=== PATIENT | female | born 1975 | race Caucasian/White ===

== ENCOUNTER 2016-05-19 05:51 | Day surgery (SDC) | payer OTHER ==
--- NOTE | 2016-05-03 09:18 | GHP ---
[f rep st] PREOP HISTORY AND PHYSICAL PLANNED PROCEDURE: Scheduled for 05/19/2016, hysteroscopy with morcellation of endometrial tissue and endometrial ablation. PREOPERATIVE DIAGNOSIS: Menorrhagia. INDICATIONS: Patient is a 40-year-old 0, who has complained for the last year and a half of progressively worsening periods. She says her periods are every 25 days. They are very heavy. She has to use super plus tampons, and soaks through them in 45 minutes to an hour. She also has painful cramps when she passes clots. Management options were reviewed extensively with the patient. Patient's has had a vasectomy. They do not plan on having any children. She has tried acupuncture and Japanese herbs, which did not improve things, and she is not interested in hormonal methods. All options were reviewed extensively with the patient, and the patient is electing to proceed with a hysteroscopy with morcellation of endometrial tissue and endometrial ablation. We discussed the routine preoperative steps of performing an endometrial biopsy in the office. The patient declines this due to perceived level of discomfort, and we discussed that if she undergoes an ablation, and the pathology from the D and C is abnormal, she will need to undergo a hysterectomy. Patient is agreeable with this plan. MEDICAL HISTORY: Endometriosis, cervical dysplasia. MEDICATIONS: None. SURGICAL HISTORY: Knee scope, diagnostic laparoscopy for endometriosis, and a LEEP excision of her cervix. ALLERGIES: No known drug allergies. SOCIAL HISTORY: The patient is . 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 She does not do drugs or smoke. She does drink 7-10 alcoholic beverages a week. FAMILY MEDICAL HISTORY: Noncontributory. 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 Periods every 25 days. She bleeds for 5-7 days, and it is super heavy. The patient is a 0. She does have a history of a LEEP excision of her cervix in 2005. Repeat Pap smears have been negative. She denies any history of any sexually transmitted diseases. PHYSICAL EXAMINATION: VITAL SIGNS: Stable. GENERAL APPEARANCE: Alert and oriented x3. HEART: Her heart rate is irregularly irregular. LUNGS: Clear to auscultation bilaterally. ABDOMEN: Soft, nondistended, nontender. EXTREMITIES: Reveal no calf tenderness or edema. PELVIC: Reveals a mobile midposition uterus with no adnexal masses. DIAGNOSTIC STUDIES: A pelvic ultrasound was obtained in 12/2015, which showed a uterus measuring 8 x 4.6 x 5.7 cm, with an endometrial thickness of 0.5 cm. Adnexae are unremarkable. ASSESSMENT AND PLAN: A 40-year-old 0 with a history of menorrhagia. The patient is electing to proceed with a hysteroscopy with morcellation of endometrial tissue and an endometrial ablation. The risks and benefits of this procedure were reviewed extensively with the patient. A 70% amenorrhea rate was discussed as well as the possibility that this will not make her cramps any better. The patient is agreeing to proceed and has signed consent. /[id number]/MODL MTDD
[2016-05-19] MEDS ORDERED: DOXYCYCLINE INJ 100 MG in D5W 250 ML IV ONE (06:00)
[2016-05-19] MEDS ORDERED: LR 1,000 ML IV ONE (06:39)
[2016-05-19] MEDS ORDERED: fentaNYL 100 MCG/2 ML INJ ONE ×2 (06:43→08:50)
[2016-05-19] MEDS ORDERED: MIDAZOLAM 2 MG/2 ML VIAL ONE (06:43)
[2016-05-19] MEDS ORDERED: PROPOFOL 200 MG/20 ML VIAL ONE (06:44)
[2016-05-19] MEDS ORDERED: SILVER NITRATE APPLICATOR 1 APPL TP ONE (07:15)
[2016-05-19] MEDS ORDERED: OXYTOCIN 10 UNIT/ML VIAL ONE (07:15)
[2016-05-19] MEDS ORDERED: HYDROmorphONE/DILAUDID 2 MG/ML INJ ONE (09:16)
[2016-05-19] MEDS ORDERED: OXYCODONE/APAP 5/325 TAB ONE (10:35)
--- NOTE | 2016-05-19 19:52 | GOP ---
[f rep st] OPERATIVE REPORT DATE OF OPERATION: 05/19/2016 SURGEON: Mya Haywood DO ANESTHESIA: General endotracheal tube. PREOPERATIVE DIAGNOSIS: Menorrhagia. POSTOPERATIVE DIAGNOSIS: Menorrhagia. PROCEDURE PERFORMED: Hysteroscopy with morcellation of endometrial tissue. FINDINGS: 1. Exam under anesthesia, mobile midposition uterus with no adnexal masses. 2. Hysteroscopic findings, thickened endometrium. 1. Postablative hysteroscopy showed diffusely ablated endometrium. 3. SPECIMENS: Endometrial curettings. ESTIMATED BLOOD LOSS: 10 cc. INDICATIONS: Patient is a 40-year-old, 0, who has a history of progressively worsening and heavier periods. The patient says her periods are every 25 days and are very heavy. She uses a sup er plus tampon. The patient's has had a vasectomy. They do not plan on having children. W e have discussed management options, and she is electing to proceed with a hysteroscopy with morcell ation of endometrial tissue and an endometrial ablation. Risks and benefits of the procedure were r eviewed with the patient, and the patient was properly consented. DESCRIPTION OF PROCEDURE: Patient was taken into the operating room with intravenous fluids in plac e. She was given doxycycline preoperatively. She was then placed on the operating room table in th e dorsal supine position where general anesthesia was obtained. She was then repositioned into the dorsal lithotomy position with the Yellofin stirrups and prepped and draped in the normal sterile fa shion. Exam under anesthesia revealed a mobile midposition uterus with no adnexal masses. A specul um was then placed in the patient's vagina. An Allis clamp was used to grasp the anterior lip of th e cervix, and the cervix was then carefully dilated to allow for the introduction of an operative hy steroscope. The hysteroscope was then introduced with fluid medium running. A slightly thickened e ndometrial cavity was noted. A morcellator was then introduced, and a circumferential morcellation was performed. Bilateral tubal ostia were visualized. The hysteroscope was then withdrawn. The Mi nerva apparatus was then introduced in the cavity; assessment was performed. An endometrial ablatio n was then performed without difficulty. The apparatus was then withdrawn. The hysteroscope was th en reintroduced with fluid medium running and a diffusely ablated endometrium was noted. The hyster oscope was then withdrawn. The Allis clamp was removed from the anterior lip of the cervix. The ce rvix was noted to be hemostatic. No bleeding was noted. The instruments were then removed the jarad ent's vagina. Patient was returned to the dorsal supine position where she was easily awoken from a nesthesia. Sponge count was correct. The patient was transferred to recovery room in stable condit ion. /[id number]/MODL
== END 2016-05-19 12:35 | disposition home or self-care (01) ==
LOC: FSGY 05:51
PROVIDERS: ATTEND Obstetrics & Gynecology
PROC: 0UDB8ZZ Extraction of Endometrium, Via Natural or Artificial Opening Endoscopic (ICD-10-PCS; principal; 2016-05-19 07:15)
DX: N92.0 Excessive and frequent menstruation with regular cycle (principal)
CPT/HCPCS: 58563; C1782; J1170; J2250; J2704; J3010

== ENCOUNTER → 2016-11-16 | Outpatient (CLI) | payer OTHER | LOC: FIMAGING 15:31 | PROVIDERS: ATTEND Obstetrics & Gynecology | DX: Z12.31 Encounter for screening mammogram for malignant neoplasm of breast (principal) | CPT/HCPCS: G0202 ==

== ENCOUNTER → 2018-01-23 | Outpatient (CLI) | payer OTHER | LOC: FIMAGING 07:54 | PROVIDERS: ATTEND Obstetrics & Gynecology | DX: Z12.31 Encounter for screening mammogram for malignant neoplasm of breast (principal) ==